=== PATIENT | male | born 1950 | race Caucasian/White ===

== ENCOUNTER 2017-02-16 13:37 | Emergency (ER) | payer OTHER ==
[~2017-02-16] VITALS: Ht 160 cm; Wt 70.0 kg
[2017-02-16 13:40] VITALS: Ht 160 cm; Wt 70.0 kg
--- NOTE | 2017-02-16 15:09 | ERD ---
ER Documentation Chief Complaint Date/Time DATE: 02/16/17 TIME: 15:03 Chief Complaint right knee pain x 2 weeks HPI 66-year-old male who presents emergency department for right knee pain for 2 weeks. Denies headache, dizziness, blurred vision, neck pain, shoulder pain, chest pain , back pain, abdominal pain, nausea, vomiting, constipation, diarrhea, urinary symptoms, trauma, injury, falls, numbness or tingling sensation, fever, chills, recent long travel. No known drug allergies. No past medical history. No surgical history. Does not take any prescription medication at home. Does not work at this time. Denies smoking, use of alcoholic beverages, use of illegal drugs. ROS All systems reviewed and are negative except as per history of present illness. Medications Home Meds Active Scripts Ibuprofen* (Ibuprofen*) 800 Mg Tablet, 800 MG PO Q12 Y for PAIN, #20 TAB Prov:JUAN PARRY 02/16/17 Physical Exam Vitals Vital Signs Date Time Temp Pulse Resp B/P Pulse Ox O2 Delivery O2 Flow Rate FiO2 02/16/17 13:40 98.1 60 18 144/69 99 Physical Exam Const: [] Head: Atraumatic Eyes: Normal Conjunctiva ENT: Normal External Ears, Nose and Mouth. Neck: Full range of motion..~ No meningismus. Resp: Clear to auscultation bilaterally Cardio: Regular rate and rhythm, no murmurs Abd: Soft, non tender, non distended. Normal bowel sounds Skin: No petechiae or rashes Back: No midline or flank tenderness Ext: No cyanosis, or edema. Right knee has inflammation anteriorly with mild tenderness and warm to touch. There is no obvious deformity. Right ankle is unremarkable. Right foot is unremarkable. There is no calf tenderness. Bilateral hips are stable and unremarkable. Has mild difficulty walking due to right knee pain. Left lower extremities unremarkable. C-spine/T-spine/L-spine are in midline and is good and full range of motion with no tenderness/swelling/ deformity/discoloration. Bilateral upper extremities are unremarkable. Neur: Awake and alert Psych: Normal Mood and Affect Result Diagram: 02/16/17 1510 02/16/17 1510 Results 24 hrs Laboratory Tests Test 02/16/17 15:10 White Blood Count 8.510^3/ul Red Blood Count 5.0310^6/ul Hemoglobin 15.2g/dl Hematocrit 44.4% Mean Corpuscular Volume 88.3fl Mean Corpuscular Hemoglobin 30.2pg Mean Corpuscular Hemoglobin Concent 34.2g/dl Red Cell Distribution Width 12.8% Platelet Count 11957^3/UL Mean Platelet Volume 9.4fl Neutrophils % 61.5% Lymphocytes % 27.8% Monocytes % 6.6% Eosinophils % 3.2% Basophils % 0.4% Nucleated Red Blood Cells % 0.0/100WBC Neutrophils # 5.210^3/ul Lymphocytes # 2.410^3/ul Monocytes # 0.610^3/ul Eosinophils # 0.310^3/ul Basophils # 0.010^3/ul Nucleated Red Blood Cells # 0.010^3/ul Erythrocyte Sedimentation Rate 3mm/Hr Sodium Level 140mmol/L Potassium Level 3.9mmol/L Chloride Level 108mmol/L Carbon Dioxide Level 23mmol/L Anion Gap 13 Blood Urea Nitrogen 13mg/dl Creatinine 0.67mg/dl Glucose Level 129mg/dl Calcium Level 9.2mg/dl Total Bilirubin 1.3mg/dl Direct Bilirubin 0.00mg/dl Indirect Bilirubin 1.3mg/dl Aspartate Amino Transf (AST/SGOT) 26IU/L Alanine Aminotransferase (ALT/SGPT) 37IU/L Alkaline Phosphatase 99IU/L C-Reactive Protein 0.5mg/dl Total Protein 7.4g/dl Albumin 4.3g/dl Globulin 3.10g/dl Albumin/Globulin Ratio 1.38 Current Medications Medications (Trade) Dose Ordered Sig/Jose Manuel Route PRN Reason Start Time Stop Time Status Last Admin Dose Admin Ketorolac Tromethamine (Toradol) 60 mg ONCE STAT IM 02/16/17 17:34 02/16/17 17:35 DC 02/16/17 18:03 Procedures/MDM Examination: Please see physical examination. Disease process, medical treatment was explained to the patient and family member. They verbalized understanding and agreed with the diagnostic tests, medical treatment, and follow-up care. Blood works: Reviewed. Radiology: X-ray of the right knee Impression: Large joint effusion. Atherosclerosis. Otherwise unremarkable images of the right knee. Treatment: Toradol IM.Hank wrap. Crutches provided. Re-evaluation: No neurovascular deficits prior to and after the application of Hank wrap. Consultation: Case was discussed with supervising physician, Dr. Som Perry who agreed with my medical decision making to discharge the patient and have the patient follow-up with a aquaculture worker. Differential diagnosis: Septic arthritis versus gouty arthritis versus rheumatoid arthritis versus fracture versus dislocation versus displacement versus contusion versus sprain Medical decision m[age]-year-old male who presents emergency department for right knee pain for 2 weeks. Patient's complaint, patient history about his complaint, my physical findings, diagnostic test results, my reevaluation after treatment are consistent with final diagnosis of arthritis. Patient agreed with the plan of care. He also stated that she will make sure to see his primary care physician and have him be referred to a aquaculture worker for Medications prescribed are the following: Motrin. Patient and family member are made aware of the side effects and adverse reactions of the medications prescribed. Instructed on when to seek emergent and medical attention in case allergic/anaphylactic reactions or severe side effects and or adverse reactions to medications. Patient and family member verbalized understanding. Patient instructed Instructed to follow-up with his PCP in 24-48 hour . PCP to refer patient to orthopedic doctor in the next 24-48 hours. PCP to refer patient to a aquaculture worker next 24-48 hours. Instructed to Call 911 for chest pain, shortness of breath. Advised to come back here in ED as soon as possible for severity of symptoms which includes but not limited to: any new symptoms; shortness of breath/difficulty of breathing; cardiovascular changes; severe gastrointestinal symptoms; signs and symptoms of bleeding and or infection; signs of compartment syndrome/neurovascular changes; neurological changes/deficits. Patient and family member verbalized understanding. Upon discharge, patient is alert and oriented x 4, speaks full and clear sentences, denies pain, has no neurological deficits, has no neurovascular deficits, difficulty of breathing. Breathing even and unlabored. Lung sounds are clear to auscultation. Not in distress. Appears comfortable. Appears satisfied with care provided here in ED. Departure Diagnosis: Primary Impression: Knee pain Additional Impressions: Joint effusion Arthritis Condition: Stable Additional Instructions: Instructed to follow-up with his PCP in 24-48 hour .PCP to refer patient to orthopedic doctor in the next 24-48 hours. Instructed to Call 911 for chest pain, shortness of breath. Advised to come back here in ED as soon as possible for severity of symptoms which includes but not limited to: any new symptoms; shortness of breath/difficulty of breathing; cardiovascular changes; severe gastrointestinal symptoms; signs and symptoms of bleeding and or infection; signs of compartment syndrome/neurovascular changes; neurological changes/deficits. Patient and family member verbalized understanding. JUAN PARRY Feb 16, 2017 15:09
[2017-02-16 15:22] LABS: BASOPHILS % 0.4 % (0.0-2.0); EOSINOPHILS # 0.3 10^3/ul (0.0-0.5); EOSINOPHILS % 3.2 % (0.0-7.0); HEMATOCRIT 44.4 % (42.0-52.0); HEMOGLOBIN 15.2 g/dl (14.0-18.0); LYMPHOCYTES # 2.4 10^3/ul (0.8-2.9); LYMPHOCYTES % 27.8 % (15.0-51.0); MEAN CORPUSCULAR HEMOGLOBIN 30.2 pg (29.0-33.0); MEAN CORPUSCULAR HGB CONC 34.2 g/dl (32.0-37.0); MEAN CORPUSCULAR VOLUME 88.3 fl (82.0-101.0); MEAN PLATELET VOLUME 9.4 fl (7.4-10.4); MONOCYTE # 0.6 10^3/ul (0.3-0.9); MONOCYTES % 6.6 % (0.0-11.0); NEUTROPHIL # 5.2 10^3/ul (1.6-7.5); NEUTROPHILS % 61.5 % (39.0-77.0); PLATELET COUNT 218 10^3/UL (140-415); RED BLOOD COUNT 5.03 10^6/ul (4.70-6.10); RED CELL DISTRIBUTION WIDTH 12.8 % (11.5-14.5); WHITE BLOOD COUNT 8.5 10^3/ul (4.8-10.8)
[2017-02-16 15:42] LABS: ALBUMIN 4.3 g/dl (3.3-4.9); ALBUMIN/GLOBULIN RATIO 1.38; BILIRUBIN,INDIRECT 1.3 mg/dl (0-1.1); BILIRUBIN,TOTAL 1.3 mg/dl (0.2-1.3); CALCIUM 9.2 mg/dl (8.4-10.2); CREATININE 0.67 mg/dl (0.61-1.24); POTASSIUM 3.9 mmol/L (3.5-5.1); TOTAL PROTEIN 7.4 g/dl (6.1-8.1)
--- NOTE | 2017-02-16 15:48 | RADRPT ---
PROCEDURE: Right knee radiographs. CLINICAL INDICATION: Right knee pain and swelling. TECHNIQUE: Three views. Weight bearing. Frontal, lateral, and patellar view. COMPARISON: No prior studies are available for comparison. FINDINGS: There is no fracture or dislocation. There is a large joint effusion. Vascular calcifications are present consistent with atherosclerosis . The articular surfaces are intact. There is no lytic or blastic lesion. There is no radiopaque foreign body. IMPRESSION: 1. Large joint effusion. 2. Atherosclerosis. 3. Otherwise unremarkable images of the right knee. RPTAT: QQ .Brodie Romero MD, Date Time Electronically viewed and signed by .Brodie Romero MD, on 02/16/2017 15:48 .R/
[2017-02-16] MEDS ORDERED: KETOROLAC 60 MG INJ IM STA (17:34)
[2017-02-16] MEDS ORDERED: IBUP800T25 PO (17:36)
== END 2017-02-16 18:12 | disposition home or self-care (01) ==
LOC: FTE 13:37
DX: M25.561 Pain in right knee (principal); M25.461 Effusion, right knee; M17.9 Osteoarthritis of knee, unspecified
CPT/HCPCS: 73562; 80053; 85025; 85651; 86140; 96372; 99284; J1885